=== PATIENT | female | born 1950 | race Caucasian/White ===

== ENCOUNTER 2018-08-08 12:08 | Emergency (ER) | payer MEDICARE, BC ==
--- NOTE | 2018-08-08 21:14 | EDM.PDOC ---
ED HPI GENERAL MEDICAL PROBLEM - General Chief Complaint: ENT Problem Stated Complaint: TOOTH PAIN Time Seen by Provider: 08/08/18 12:08 Source of Information: Reports: Patient History Limitations: Reports: No Limitations - History of Present Illness INITIAL COMMENTS - FREE TEXT/NARRATIVE: Pt. presents to ER with complaints of dental pain to L lower premolars. Pt. states that the pain started today. No fever or chills. Pt. states that the discomfort extends into the L side of her face and ear. She denies any trauma to the area. No chest pain or shortness of breath. She states that she has noted to L sided lymphadenopathy. Onset: Today Onset Date: 08/08/18 Duration: Constant, Getting Worse Location: Reports: Face Quality: Reports: Ache, Throbbing Severity: Severe Left Lower Oral/Mouth Pain Score (Numeric/FACES): 8 - Related Data Allergies Allergy/AdvReac Type Severity Reaction Status Date / Time morphine Allergy Cannot Verified 08/08/18 12:20 Remember Home Meds: Home Meds Calcium Carbonate/Vitamin D3 [Calcium 600 + Vit D 200] 1 each PO BID 08/08/18 [ History] Multivitamin [Multivitamins] 1 each PO DAILY 08/08/18 [History] Naratriptan HCl 2.5 mg PO ASDIRECTED 08/08/18 [History] Pantoprazole Sodium [Protonix] 40 mg PO DAILY 08/08/18 [History] Ranitidine [Zantac] 150 mg PO BEDTIME 08/08/18 [History] Verapamil HCl [Verapamil ER] 120 mg PO DAILY 08/08/18 [History] lamoTRIgine [Lamotrigine] 100 mg PO BID 08/08/18 [History] Past Medical History Gastrointestinal History: Reports: GERD Neurological History: Reports: Migraines Social & Family History - Tobacco Use Smoking Status *Q: Never Smoker ED ROS GENERAL - Review of Systems Review Of Systems: See Below Constitutional: Reports: No Symptoms HEENT: Reports: Dental Pain Respiratory: Reports: No Symptoms Cardiovascular: Reports: No Symptoms Endocrine: Reports: No Symptoms GI/Abdominal: Reports: No Symptoms : Reports: No Symptoms Musculoskeletal: Reports: No Symptoms Skin: Reports: No Symptoms Neurological: Reports: No Symptoms Psychiatric: Reports: No Symptoms Hematologic/Lymphatic: Reports: No Symptoms Immunologic: Reports: No Symptoms ED EXAM, GENERAL - Physical Exam Exam: See Below Exam Limited By: No Limitations General Appearance: Alert, WD/WN, No Apparent Distress Eye Exam: Bilateral Eye: EOMI, Normal Fundi, Normal Inspection, PERRL Ears: Normal External Exam, Normal Canal, Hearing Grossly Normal, Normal TMs Ear Exam: Bilateral Ear: Auricle Normal, Canal Normal, TM normal Nose: Normal Inspection, Normal Mucosa, No Blood Throat/Mouth: Other (appears to be a small absess in the area of the L lower premolars. Her molars and promolars have been removed. No other obvious tooth decay noted.) Head: Atraumatic, Normocephalic Neck: Normal Inspection, Supple, Non-Tender, Full Range of Motion Respiratory/Chest: No Respiratory Distress, Lungs Clear, Normal Breath Sounds, No Accessory Muscle Use, Chest Non-Tender Cardiovascular: Normal Peripheral Pulses, Regular Rate, Rhythm, No Edema, No Gallop, No JVD, No Murmur, No Rub Peripheral Pulses: 3+: Radial (L), Radial (R) Course - Vital Signs Last Recorded V/S: Last Vital Signs Temp 36.8 C 08/08/18 12:10 Pulse 77 08/08/18 12:10 Resp 16 08/08/18 12:10 BP 141/80 H 08/08/18 12:10 Pulse Ox 98 08/08/18 12:10 Departure - Departure Time of Disposition: 12:34 Disposition: Home, Self-Care 01 Clinical Impression: Dental abscess - Discharge Information Instructions: Acetaminophen; Hydrocodone tablets or capsules, Amoxicillin; Clavulanic Acid tablets, Dental Abscess, Probiotics Referrals: Tanya Pagan, [Primary Care Provider] - Forms: ED Department Discharge Additional Instructions: Augmentin 875mg twice daily for 10 days [place] 5/325mg 1 every 6 hours as needed for pain. Drink plenty of fluids. Contact dentist on Friday to arrange follow-up. - Assessment/Plan Plan: Augmentin 875mg twice daily for 10 days [place] 5/325mg 1 every 6 hours as needed for pain. Drink plenty of fluids. Contact dentist on Friday to arrange follow-up.
== END 2018-08-08 12:34 | disposition home or self-care (01) ==
LOC: VM.ED 12:08
DX: K04.7 Periapical abscess without sinus (principal); K21.9 Gastro-esophageal reflux disease without esophagitis
CPT/HCPCS: 99282